=== PATIENT | female | born 2005 | race Caucasian/White ===

== ENCOUNTER 2024-11-07 16:15 | Emergency (ER) | payer OTHER ==
[~2024-11-07] VITALS: Ht 152.4 cm; Wt 59.7 kg
[2024-11-07] MEDS ORDERED: XULA1DIS TOP (16:24)
[2024-11-07] MEDS ORDERED: IBUP200C28 PO (16:41)
[2024-11-07 18:19] VITALS: BP 130/63; TEMP 98.2; O2SAT 100
== END 2024-11-07 18:28 | disposition home or self-care (01) ==
LOC: M ED 16:15
DX: M25.561 Pain in right knee (principal)